=== PATIENT | female | born 1995 | race Caucasian/White ===

== ENCOUNTER 2017-08-10 17:01 | Inpatient (IN) | payer OTHER ==
[2017-08-10] MEDS ORDERED: MORPHINE 4 MG/ML SYR ONE (18:50)
[2017-08-10] MEDS ORDERED: NA CHLORIDE 0.9% 1,000 ML ONE (18:51)
[2017-08-10] MEDS ORDERED: ONDANSETRON 4 MG/2 ML VIAL ONE (18:51)
[2017-08-10 18:52] LABS: Absolute Lymphocytes (CBC) 1.6 K/uL (0.7-4.9); Absolute Monocytes 0.5 K/uL (0.1-1.3); Absolute Neutrophil 12.3 K/uL (1.8-8.0); Basophils % 0.6 % (0-1.3); Eosinophils % 0.2 % (0-4.4); Hematocrit 46.7 % (36.0-45.0); Lymphocytes % 11.2 % (15.3-44.8); MCH 28.8 pg (27.0-35.0); MCV 89.7 fL (80-100); MPV 8.5 fL (7.6-11.3); Monocytes % 3.4 % (3.3-12.3); RBC Red Blood Cell Count 5.21 M/uL (3.86-4.86)
--- NOTE | 2017-08-10 19:10 | RAD REPORT ---
EXAM DESCRIPTION: US - Abdomen Exam Limited - 08/10/2017 6:32 pm CLINICAL HISTORY: Abdominal pain Preliminary findings provided at the time of the study. COMPARISON: None. FINDINGS: Several small mobile sub centimeter gallstones are seen. No measurable quantity of sludge. There is no wall thickening or pericholecystic fluid. No common duct stone identified. Extrahepatic biliary tree is upper normal at 7- 8 mm. No intrahepati c dilatation. IMPRESSION: Small sub centimeter mobile gallstones with no other gallbladder abnormality. Upper normal biliary tree with no duct stone identifiable.
[2017-08-10 19:13] LABS: ALT/SGPT 44 U/L (12-78); AST/SGOT 48 U/L (15-37); Albumin 4.2 g/dL (3.4-5.0); Alkaline Phosphatase 162 U/L (45-117); Amylase Level 43 U/L (25-115); BUN Blood Urea Nitrogen 16 mg/dL (7-18); Bicarbonate 28 mmol/L (21-32); Bilirubin Direct 0.2 mg/dL (0-0.2); Bilirubin Total 0.6 mg/dL (0.2-1.0); Glucose Level 90 mg/dL (74-106); Lipase 157 U/L (73-393); Potassium 4.1 mmol/L (3.5-5.1); Protein, Total 8.8 g/dL (6.4-8.2); Sodium Level 140 mmol/L (136-145)
[2017-08-10 19:39] LABS: Protime INR 0.97
[2017-08-10 20:51] LABS: Urine Blood 2+ (NEG); Urine Glucose NEGATIVE (NEG); Urine Protein NEGATIVE (NEG); Urine Specific Gravity 1.025 (1.005-1.030)
[2017-08-10 20:55] LABS: Urine Bacteria <20 /HPF (<20); Urine Culture Reflex Order NOT NEEDED; Urine Mucus 2+ /HPF (NONE SEEN)
--- NOTE | 2017-08-10 21:41 | ER ---
Nurse's Notes [facility] Name: Haylie Ayon Age: 22 yrs Sex: Female : 1995 Arrival Date: 08/10/2017 Time: 17:02 Bed 14 Private MD: Car Huynh Diagnosis: Cholecystitis Presentation: 08/10 17:10 Presenting complaint: Patient states: ABD pain Left and RIght upper, nausea vomiting, sg chills. Recently had a baby about three weeks ago. Transition of care: patient was not received from another setting of care. Onset of symptoms was August 10, 2017. Risk Assessment: Do you want to hurt yourself or someone else? Patient reports no desire to harm self or others. Initial Sepsis Screen: Does the patient meet any 2 criteria? No. Patient's initial sepsis screen is negative. Does the patient have a suspected source of infection? No. Patient's initial sepsis screen is negative. Care prior to arrival: None. 17:10 Method Of Arrival: Ambulatory sg 17:10 Acuity: JACQUELINE 3 sg NETWORK RELATIONS CONSULTANT: 22:13 LMP N/A - Irregular menses bs1 Historical: - Allergies: 17:13 PENICILLINS; sg - Home Meds: 17:13 None [Active]; sg - PMHx: 17:13 None; sg - PSHx: 17:13 None; sg - Immunization history:: Adult Immunizations up to date. - Social history:: Smoking status: Patient/guardian denies using tobacco. - Ebola Screening: : Patient negative for fever greater than or equal to 101.5 degrees Fahrenheit, and additional compatible Ebola Virus Disease symptoms Patient denies exposure to infectious person Patient denies travel to an Ebola-affected area in the 21 days before illness onset No symptoms or risks identified at this time. Screenin:31 Abuse screen: Denies threats or abuse. Denies injuries from another. Nutritional bs1 screening: No deficits noted. Tuberculosis screening: No symptoms or risk factors identified. Fall Risk None identified. Assessment: 18:44 General: Appears in no apparent distress. uncomfortable, Behavior is calm, cooperative, aj appropriate for age. Pain: Complains of pain in abdomen. Neuro: Level of Consciousness is awake, alert, obeys commands, Oriented to person, place, time, situation, Appropriate for age. Respiratory: Airway is patent Respiratory effort is even, unlabored, Respiratory pattern is regular, symmetrical. GI: Abdomen is flat, non-distended, Bowel sounds present X 4 quads. Abd is soft and non tender X 4 quads. Reports lower abdominal pain, upper abdominal pain. Derm: Skin is intact, is healthy with good turgor, Skin is pink, warm \\T\\ dry. normal. 19:06 Reassessment: Report received from STEPHY Peralta. General: Appears in no apparent bs1 distress. uncomfortable, slender, Behavior is calm, cooperative, appropriate for age. Pain: Complains of pain in abdomen. Neuro: Level of Consciousness is awake, alert, obeys commands, Oriented to person, place, time, situation. Cardiovascular: Denies chest pain, shortness of breath, Heart tones S1 S2 present Capillary refill < 3 seconds Patient's skin is warm and dry. Respiratory: Airway is patent Trachea midline Respiratory effort is even, unlabored, Respiratory pattern is regular, symmetrical, Breath sounds are clear bilaterally. GI: Abdomen is flat, non-distended, Bowel sounds present X 4 quads. Abdomen is tender to palpation X 4 quads. Reports lower abdominal pain, upper abdominal pain. : No signs and/or symptoms were reported regarding the genitourinary system. EENT: No signs and/or symptoms were reported regarding the EENT system. Derm: Skin is intact, is healthy with good turgor. Musculoskeletal: Circulation, motion, and sensation intact. Capillary refill < 3 seconds, Range of motion: intact in all extremities. 20:15 Reassessment: Patient appears in no apparent distress at this time. No changes from bs1 previously documented assessment. Patient and/or family updated on plan of care and expected duration. Pain level reassessed. Patient is alert, oriented x 3, equal unlabored respirations, skin warm/dry/pink. 21:45 Reassessment: Dr Thompson Speaking with patient regarding surgery/POC. Patient states bs1 understanding of POC. 22:20 Reassessment: Patient refused changing into gown, states "I will change upstairs.". bs1 Vital Signs: 17:11 BP 106 / 70; Pulse 54; Resp 16; Temp 97.6; Pulse Ox 100% ; Weight 58.51 kg (R); Height sg 5 ft. 3 in. (160.02 cm); Pain 8/10; 19:00 BP 113 / 69; Pulse 50; Resp 16; Pulse Ox 98% on R/A; Pain 5/10; bs1 20:00 BP 113 / 67; Pulse 50; Resp 17 S; Pulse Ox 99% on R/A; bs1 21:00 BP 112 / 79; Pulse 52; Resp 18; Pulse Ox 99% on R/A; bs1 22:00 BP 114 / 82; Pulse 50; Resp 16; Temp 98(O); Pulse Ox 100% on R/A; Pain 0/10; bs1 17:11 Body Mass Index 22.85 (58.51 kg, 160.02 cm) ED Course: 17:02 Patient arrived in ED. as 17:02 Car Huynh MD is Private Physician. as 17:10 Arm band placed on. sg 17:11 Triage completed. sg 17:47 Carl Valdez NP is PHCP. pm1 17:47 Pavel Chávez MD is Attending Physician. pm1 18:32 US Abdomen Limited In Process Unspecified. EDMS 18:32 Ultrasound completed. Patient tolerated well. aa4 18:42 Kathryn Todd, RN is Primary Nurse. aj 18:43 Inserted saline lock: 20 gauge in right antecubital area, using aseptic technique. aj Blood collected. 19:23 by me, sent to lab. Lav-BB, and PT,PTT. bs1 19:31 Patient has correct armband on for positive identification. Bed in low position. Call bs1 light in reach. Side rails up X 1. Pulse ox on. NIBP on. 21:40 Sim Thompson MD is Hospitalizing Provider. pm1 22:13 No provider procedures requiring assistance completed. Patient admitted, IV remains in bs1 place. intact. Administered Medications: 18:54 Drug: Zofran 4 mg Route: IVP; Site: right antecubital; aj 21:44 Follow up: Response: No adverse reaction bs1 18:55 Drug: NS 0.9% 1000 ml Route: IV; Rate: 1000 ml; Site: right antecubital; aj 21:44 Follow up: IV Status: Completed infusion bs1 18:55 Drug: morphine 4 mg Route: IVP; Site: right antecubital; aj 21:43 Follow up: Response: No adverse reaction bs1 21:56 Drug: Rocephin 1 grams Route: IV; Rate: calculated rate; Site: right antecubital; bs1 22:22 Follow up: IV Status: Completed infusion bs1 Outcome: 21:41 Decision to Hospitalize by Provider. pm1 22:13 Condition: stable bs1 22:20 Admitted to Med/surg accompanied by tech, via wheelchair, room 205, with chart, Report bs1 called to STEPHY Hernandez 22:20 Instructed on the need for admit. 22:41 Patient left the ED. bs1 Signatures: Dispatcher [employer] EDVladislav Fernando RN RN sg Myers, Amanda, RN RN aj Martinez, Amelia as Frazier, Amanda aa4 Carl Valdez, LEAD WEB APPLICATION DEVELOPER LEAD WEB APPLICATION DEVELOPER pm1 Zahra Saenz RN RN bs1 Corrections: (The following items were deleted from the chart) 22:22 21:45 Reassessment: Dr Thompson Speaking with patient regarding surgery/POC bs1 bs1
--- NOTE | 2017-08-10 21:41 | EDPHYS ---
Physician Documentation [facility] Name: Haylie Ayon Age: 22 yrs Sex: Female : 1995 Arrival Date: 08/10/2017 Time: 17:02 Bed 14 Private MD: Car Huynh ED Physician Pavel Chávez HPI: 08/10 18:47 This 22 yrs old Female presents to ER via Ambulatory with complaints of pm1 Abdominal Pain, Nausea. 18:47 The patient presents with abdominal pain in the right upper quadrant. Onset: The pm1 symptoms/episode began/occurred today, at 15:00. The symptoms do not radiate. Associated signs and symptoms: Pertinent positives: nausea and vomiting, fever, 100.7, Pertinent negatives: chest pain, diarrhea, shortness of breath. The symptoms are described as achy. Modifying factors: The symptoms are alleviated by nothing, the symptoms are aggravated by nothing. Severity of pain: in the emergency department the pain is actually worse. The patient has not experienced similar symptoms in the past. DELIVERY REP: 22:13 LMP N/A - Irregular menses bs1 Historical: - Allergies: 17:13 PENICILLINS; sg - Home Meds: 17:13 None [Active]; sg - PMHx: 17:13 None; sg - PSHx: 17:13 None; sg - Immunization history:: Adult Immunizations up to date. - Social history:: Smoking status: Patient/guardian denies using tobacco. - Ebola Screening: : Patient negative for fever greater than or equal to 101.5 degrees Fahrenheit, and additional compatible Ebola Virus Disease symptoms Patient denies exposure to infectious person Patient denies travel to an Ebola-affected area in the 21 days before illness onset No symptoms or risks identified at this time. ROS: 18:47 Eyes: Negative for injury, pain, redness, and discharge, ENT: Negative for injury, pm1 pain, and discharge, Neck: Negative for injury, pain, and swelling, Cardiovascular: Negative for chest pain, palpitations, and edema, Respiratory: Negative for shortness of breath, cough, wheezing, and pleuritic chest pain. 18:47 Back: Negative for injury and pain, : Negative for injury, bleeding, discharge, and swelling, MS/Extremity: Negative for injury and deformity, Skin: Negative for injury, rash, and discoloration, Neuro: Negative for headache, weakness, numbness, tingling, and seizure. 18:47 Constitutional: Positive for fever, Negative for body aches, poor PO intake. 18:47 Abdomen/GI: Positive for abdominal pain, nausea and vomiting, Negative for diarrhea, constipation. Exam: 19:00 Constitutional: This is a well developed, well nourished patient who is awake, alert, pm1 and in no acute distress. Head/Face: Normocephalic, atraumatic. Eyes: Pupils equal round and reactive to light, extra-ocular motions intact. Lids and lashes normal. Conjunctiva and sclera are non-icteric and not injected. Cornea within normal limits. Periorbital areas with no swelling, redness, or edema. ENT: Nares patent. No nasal discharge, no septal abnormalities noted. Tympanic membranes are normal and external auditory canals are clear. Oropharynx with no redness, swelling, or masses, exudates, or evidence of obstruction, uvula midline. Mucous membranes moist. Neck: Trachea midline, no thyromegaly or masses palpated, and no cervical lymphadenopathy. Supple, full range of motion without nuchal rigidity, or vertebral point tenderness. No Meningismus. Chest/axilla: Normal chest wall appearance and motion. Nontender with no deformity. No lesions are appreciated. Cardiovascular: Regular rate and rhythm with a normal S1 and S2. No gallops, murmurs, or rubs. Normal PMI, no JVD. No pulse deficits. Respiratory: Lungs have equal breath sounds bilaterally, clear to auscultation and percussion. No rales, rhonchi or wheezes noted. No increased work of breathing, no retractions or nasal flaring. 19:00 Back: No spinal tenderness. No costovertebral tenderness. Full range of motion. Skin: Warm, dry with normal turgor. Normal color with no rashes, no lesions, and no evidence of cellulitis. MS/ Extremity: Pulses equal, no cyanosis. Neurovascular intact. Full, normal range of motion. 19:00 Abdomen/GI: Inspection: abdomen appears normal, Bowel sounds: normal, Palpation: soft, moderate abdominal tenderness, in the right upper quadrant, mass, is not appreciated, rebound tenderness, is not appreciated. 19:00 Neuro: Orientation: is normal, Motor: moves all fours. Vital Signs: 17:11 BP 106 / 70; Pulse 54; Resp 16; Temp 97.6; Pulse Ox 100% ; Weight 58.51 kg (R); Height sg 5 ft. 3 in. (160.02 cm); Pain 8/10; 19:00 BP 113 / 69; Pulse 50; Resp 16; Pulse Ox 98% on R/A; Pain 5/10; bs1 20:00 BP 113 / 67; Pulse 50; Resp 17 S; Pulse Ox 99% on R/A; bs1 21:00 BP 112 / 79; Pulse 52; Resp 18; Pulse Ox 99% on R/A; bs1 22:00 BP 114 / 82; Pulse 50; Resp 16; Temp 98(O); Pulse Ox 100% on R/A; Pain 0/10; bs1 17:11 Body Mass Index 22.85 (58.51 kg, 160.02 cm) sg MDM: 17:48 Patient medically screened. pm1 21:30 Physician consultation: Sim Thompson MD would like medications started, Rocephin, in pm1 the emergency department to see patient at 21:39. 21:39 Data reviewed: vital signs. Data interpreted: Pulse oximetry: on room air is 100 %. pm1 Interpretation: normal. Counseling: I had a detailed discussion with the patient and/or guardian regarding: the historical points, exam findings, and any diagnostic results supporting the discharge/admit diagnosis, lab results, radiology results, the need for further work-up and treatment in the hospital. 08/10 17:54 Order name: Amylase, Serum; Complete Time: 19:14 pm1 08/10 17:54 Order name: Basic Metabolic Panel; Complete Time: 19:14 pm1 08/10 17:54 Order name: CBC with Diff; Complete Time: 19:14 pm1 08/10 17:54 Order name: Creatinine for Radiology; Complete Time: 19:14 pm1 08/10 17:54 Order name: Hepatic Function; Complete Time: 19:14 pm08/10 17:54 Order name: Lipase; Complete Time: 19:14 pm08/10 17:54 Order name: Urine Microscopic Only; Complete Time: 21:04 pm1 08/10 18:04 Order name: US Abdomen Limited; Complete Time: 19:14 pm1 08/10 18:46 Order name: Type And Screen; Complete Time: 20:13 pm1 08/10 18:46 Order name: PT-INR; Complete Time: 20:13 pm1 08/10 18:46 Order name: Ptt, Activated; Complete Time: 20:13 pm1 08/10 20:42 Order name: Urine Dipstick--Ancillary (enter results); Complete Time: 21:04 [facility] 08/10 20:42 Order name: Urine --Ancillary (enter results); Complete Time: 21:04 [facility] 08/10 17:54 Order name: IV Saline Lock; Complete Time: 18:42 pm1 08/10 17:54 Order name: Labs collected and sent; Complete Time: 18:43 pm1 08/10 17:54 Order name: Urine Dipstick-Ancillary (obtain specimen); Complete Time: 20:34 pm1 08/10 18:04 Order name: Urine Test (obtain specimen); Complete Time: 20:33 pm1 Administered Medications: 18:54 Drug: Zofran 4 mg Route: IVP; Site: right antecubital; aj 21:44 Follow up: Response: No adverse reaction bs1 18:55 Drug: NS 0.9% 1000 ml Route: IV; Rate: 1000 ml; Site: right antecubital; aj 21:44 Follow up: IV Status: Completed infusion bs1 18:55 Drug: morphine 4 mg Route: IVP; Site: right antecubital; aj 21:43 Follow up: Response: No adverse reaction bs1 21:56 Drug: Rocephin 1 grams Route: IV; Rate: calculated rate; Site: right antecubital; bs1 22:22 Follow up: IV Status: Completed infusion bs1 Disposition: 08/11 07:10 Co-signature as Attending Physician, Pavel Chávez MD. rn Disposition: 08/10/17 21:41 Hospitalization ordered by Sim Thompson for Observation. Preliminary diagnosis is Cholecystitis. - Bed requested for Telemetry/MedSurg (observation). - Status is Observation. bs1 - Condition is Stable. - Problem is new. - Symptoms have improved. UTI on Admission? No Signatures: Dispatcher [employer] EDMN Liane Davis RN RN mw Gay, Steven, RN RN sg Myers, Amanda, RN RN aj Nieto, Roman, MD MD rn Marinas, Patrick, IMMIGRATION PARALEGAL IMMIGRATION PARALEGAL pm1 Zahra Saenz, RN RN bs1 Corrections: (The following items were deleted from the chart) 08/10 20:26 18:47 Associated signs and symptoms: Pertinent positives: nausea and vomiting, fever, pm1 102, Pertinent negatives: chest pain, diarrhea, shortness of breath, pm1 21:42 21:41 Hospitalization Ordered by Sim Thompson MD for Observation. Preliminary mw diagnosis is Cholecystitis. Bed requested for Telemetry/MedSurg (observation). Status is Observation. Condition is Stable. Problem is new. Symptoms have improved. UTI on Admission? No. pm1 22:41 21:42 08/10/2017 21:41 Hospitalization Ordered by Sim Thompson MD for Observation. bs1 Preliminary diagnosis is Cholecystitis. Bed requested for Telemetry/MedSurg (observation). Status is Observation. Condition is Stable. Problem is new. Symptoms have improved. UTI on Admission? No. mw
[2017-08-10] MEDS ORDERED: CEFTRIAXONE/SWI 1gm 1 GM/10 ML SYR ONE (21:54)
[2017-08-10] MEDS ORDERED: ONDANSETRON 4 MG/2 ML VIAL IV PRN (22:27)
[2017-08-10] MEDS ORDERED: ACETAMINOPHEN 500 MG TAB PO PRN (22:27)
[2017-08-10] MEDS ORDERED: MORPHINE 4 MG/ML SYR IV PRN (22:27)
[2017-08-10 23:09] VITALS: BMI 23.3
[2017-08-10] MEDS: NA CHLORIDE 0.9% 1,000 ML IV SCH (23:58)
[2017-08-11] MEDS ORDERED: LIDOCAINE 1% MPF 5 ML VIAL ONE (08:26)
[2017-08-11] MEDS ORDERED: FENTANYL CITR 100 MCG/2 ML ONE (08:26)
[2017-08-11] MEDS ORDERED: ROCURONIUM 50 MG/5 ML VIAL IV ONE (08:26)
[2017-08-11] MEDS ORDERED: MIDAZOLAM HCL 2 MG/2 ML INJ ONE (08:26)
[2017-08-11] MEDS ORDERED: PROPOFOL 200 MG/20 ML VIAL IV ONE (08:26)
[2017-08-11] MEDS: NA CHLORIDE 0.9% 1,000 ML IV SCH (08:56)
[2017-08-11] MEDS ORDERED: CEFTRIAXONE/SWI 1gm 1 GM/10 ML SYR IV SCH (09:00)
[2017-08-11] MEDS ORDERED: CEFTRIAXONE 1 GM/NS 50 ML 1 GM/50 ML BAG IV SCH (09:00)
[2017-08-11] MEDS ORDERED: Ringers Lactate 1,000 ML IV ONE (09:27)
[2017-08-11] MEDS ORDERED: BUPIVACAINE 0.5% PF 10 ML VIAL ONE (09:29)
[2017-08-11] MEDS ORDERED: GLYCOPYRROLATE 0.2 MG/ML SYR ONE ×3 (10:52→10:58)
[2017-08-11] MEDS ORDERED: KETOROLAC 30 MG/ML INJ ONE (10:52)
[2017-08-11] MEDS ORDERED: NEOSTIGMINE 1 MG/ML -5 ML SYRINGE ONE (10:54)
--- NOTE | 2017-08-11 10:59 | P.OP ---
Preoperative diagnosis: Acute on chronic cholecystitis with cholelithiasis Postoperative diagnosis: The same Primary procedure: Laparoscopic cholecystectomy Secondary procedure: Cholangiogram Anesthesia: General Estimated blood loss: Less than 10 cc Specimen: 1 gallbladder and content Operative Technique: The patient was brought to the operating room placed supine on the table. After the induction of adequate general endotracheal anesthesia, the area of the abdomen is prepped with a DuraPrep solution, and draped in the usual aseptic manner. A subumbilical incision was made. This brought down through the skin and subcutaneous tissue. The Visiport was used to enter the peritoneal cavity and created pneumoperitoneum to approximately 12 mm of mercury. Under direct vision a 5 mm trocar was placed in the upper midline, and 2 other 5 mm trocars on the right lateral side. The patient's head was then elevated and rolled towards the carbon furnace operator helper's side. We could see acutely inflamed gallbladder with some omental adhesions to the serosal surface. These were taken down using blunt sharp and sharp dissection. A grasper was placed on the fundus of the gallbladder. Another 1 was placed down by Francisco J's pouch. Applying lateral traction we were able to dissect and expose the cystic duct and artery. The artery was dealt with 1st. It was clipped and divided in the usual manner. A clip was then placed between the gallbladder and the cystic duct. An opening was made into the cystic duct. We attempted then to pass the cholangiocath into the cystic duct. The catheter past the sleep. We obtained a good intraoperative cholangiogram demonstrating contrast into the duodenum. No filling defects were seen. A small area of concern was found to just be an air bubble and artifact not it representing entry stone. Clips were now placed on the distal portion of the cystic duct. The cystic duct was then divided. The gallbladder was now dissected free from the liver bed, placed into an Endo-Catch , and brought out through the umbilical trocar site. The gallbladder fossa was inspected to ensure adequate hemostasis. It was irrigated with a saline solution and the irrigant aspirated from the peritoneal cavity. 0.25% Marcaine was aerosolized into the right upper quadrant and the gallbladder fossa. The umbilical trocar site was now approximated with an Endo Close and an absorbable sutures. The pneumoperitoneum was then collapsed, the suture tied, and michelle applied to the skin. A further 0.25% Marcaine was injected around are incision sites. At the end of the procedure the patient was in a stable condition when sent to the recovery room. Needle sponge instrument count were correct. 1 specimen was sent for histopathology. Complications: None Transferred to: Recovery Room Condition: Good
[2017-08-11] MEDS ORDERED: MORPHINE 4 MG/ML SYR IV PRN (11:11)
[2017-08-11] MEDS ORDERED: ONDANSETRON 4 MG/2 ML VIAL ONE (11:11)
[2017-08-11] MEDS ORDERED: HYDROCODONE/APAP 7.5/325 MG TAB PO PRN (11:11)
[2017-08-11] MEDS ORDERED: MEPERIDINE HCL 25 MG/0.5 ML ONE (11:21)
[2017-08-11] MEDS: MEPERIDINE HCL 25 MG/0.5 ML ONE ×2 (11:22→11:27)
[2017-08-11 11:32] VITALS: O2SAT 98
--- NOTE | 2017-08-11 11:52 | RAD REPORT ---
EXAM DESCRIPTION: RAD - Cholangiogram Oper-Xray Or - 08/11/2017 11:38 am CLINICAL HISTORY: POSSIBLE BLOCKAGE Status post cholecystectomy COMPARISON: Abdomen Exam Limited dated 08/10/2017 FINDINGS: Intraoperative cholangiogram is submitted. Cystic duct injection was performed by maikel gaytan surgeon. Smooth narrowing of the distal common bile duct is present likely representing a benign st ricture. No retained common bile duct stone is seen. Total fluoro time: 0.4 minutes.
[2017-08-11 16:42] VITALS: BP 119/66; TEMP 98.6
--- NOTE | 2017-08-27 19:41 | P.DS ---
Admission Date: 08/11/17 Discharge Date: 08/27/17 Disposition: ROUTINE DISCHARGE Discharge Condition: GOOD Reason for Admission: Acute postoperative abdominal pain Procedures: Laparoscopic cholecystectomy with intraoperative cholangiogram Brief History of Present Illness: This patient presents emergency room with severe right upper quadrant abdominal pain radiating to her back for diagnosis and treatment. She was evaluated and found to have acute cholecystitis with cholelithiasis. She was brought to the operating room where she underwent a laparoscopic cholecystectomy with intraoperative cholangiogram. She tolerated the procedure well. She was admitted postoperatively for control of her acute postoperative abdominal pain. The following day she was up ambulating, tolerating a diet, voiding on her own and her pain was well controlled on oral medication. She was deemed fit for discharge. Hospital Course: As described above Vital Signs/Physical Exam: Temp Pulse Resp BP Pulse Ox 98.6 F 52 16 119/66 98 08/11/17 16:00 08/11/17 16:00 08/11/17 16:00 08/11/17 16:00 08/11/17 16:00 Laboratory Data at Discharge: WBC 14.6 K/uL (4.3-10.9) H 08/10/17 18:43 Hgb 15.0 g/dL (12.0-15.0) 08/10/17 18:43 Hct 46.7 % (36.0-45.0) H 08/10/17 18:43 Plt Count 269 K/uL (152-406) 08/10/17 18:43 PT 11.5 SECONDS (9.5-12.5) 08/10/17 19:23 INR 0.97 08/10/17 19:23 APTT 30.4 SECONDS (24.3-36.9) 08/10/17 19:23 Sodium 140 mmol/L (136-145) 08/10/17 18:43 Potassium 4.1 mmol/L (3.5-5.1) 08/10/17 18:43 BUN 16 mg/dL (7-18) 08/10/17 18:43 Creatinine 0.70 mg/dL (0.55-1.3) 08/10/17 18:43 Glucose 90 mg/dL (74-106) 08/10/17 18:43 Total Bilirubin 0.6 mg/dL (0.2-1.0) 08/10/17 18:43 AST 48 U/L (15-37) H 08/10/17 18:43 ALT 44 U/L (12-78) 08/10/17 18:43 Alkaline Phosphatase 162 U/L (45-117) H 08/10/17 18:43 Amylase 43 U/L (25-115) 08/10/17 18:43 Lipase 157 U/L (73-393) 08/10/17 18:43 Home Medications: Hydrocodone 7.5/APAP 325 [Drums 7.5/325 mg] 1 tab PO Q4H PRN #20 tab 08/11/17 New Medications: Hydrocodone 7.5/APAP 325 [Drums 7.5/325 mg] 1 tab PO Q4H PRN #20 tab PRN Reason: Pain Followup: Sim Thompson MD [ACTIVE - CAN ADMIT] - 08/18/17 (Follow up in office next Monday. Call to schedule an appointment. )
== END 2017-08-11 18:47 | disposition home or self-care (01) | DRG 419 ==
LOC: ER 17:01 → ERHOLD 21:50 → 2ND 22:25 → OBSVTOIN 08-11 09:55
PROVIDERS: ADMIT Surgery; ATTEND Surgery
PROC: BF101ZZ Fluoroscopy of Bile Ducts using Low Osmolar Contrast (ICD-10-PCS; 2017-08-11)
PROC: 0FT44ZZ Resection of Gallbladder, Percutaneous Endoscopic Approach (ICD-10-PCS; principal; 2017-08-11 09:15)
DX: K80.12 Calculus of gallbladder with acute and chronic cholecystitis without obstruction (principal); Z88.0 Allergy status to penicillin
CPT/HCPCS: 36415; 74300; 76705; 80048; 80076; 81003; 81015; 81025; 82150; 83690; 85025; 85610; 85730; 86850; 86900; 86901; 88304; 96361; 96365; 96375; 99285; J0696; J2175; J2250; J2405; J2710; J3010; J7030; Q9967